=== PATIENT | female | born 1975 | race Two or more races ===

== ENCOUNTER 2023-08-02 07:58 | Inpatient (IN) | payer MEDICAID ==
[~2023-08-02] VITALS: Ht 157.5 cm; Wt 96.6 kg
[2023-08-02] VITALS (13 sets, daily range): BP systolic 123–166; BP diastolic 69–83; PULSE 75–90; RESP 14–21; TEMP 98–98.2; O2SAT 98–99
[2023-08-02 08:50] LABS: Alanine Aminotransferase 16 U/L (7-40); Albumin 4.3 g/dL (3.2-4.8); Alkaline Phosphatase 78 U/L (46-116); Anion Gap 7 (5-15); Aspartate Aminotransferase 17 U/L (13-40); BUN/Creatinine Ratio 31.5 (10.0-20.0); Bilirubin, Total 0.4 mg/dL (0.2-1.0); Blood Urea Nitrogen 23 mg/dL (9-23); Calcium 9.4 mg/dL (8.5-10.1); Carbon Dioxide 24 mmol/L (20-30); Chloride 108 mmol/L (98-107); Glucose 118 mg/dL (74-106); Potassium 4.1 mmol/L (3.5-5.1); Sodium 139 mmol/L (136-145); Total Protein 7.3 g/dL (5.7-8.2)
[2023-08-02 08:51] LABS: Urine Bacteria NONE SEEN /hpf (None Seen); Urine Blood 3+ /uL (Negative); Urine Clarity Clear (Clear); Urine Color Yellow (Yellow); Urine Hyaline Cast FEW /lpf (0 - 2); Urine Mucus FEW (None Seen); Urine Protein, UAD 1+ (Negative); Urine Specific Gravity 1.033 (1.001-1.035); Urine Urobilinogen Normal (Negative); Urine WBC 7 /hpf (0 - 5); Urine pH 5.5 (5.0-8.0)
[2023-08-02 08:56] LABS: Mean Corpuscular Hemoglobin 11.3 pg (28.0-32.0); Mean Corpuscular Hgb Conc. 23.9 g/dL (32.0-36.0)
[2023-08-02 08:58] LABS: Hematocrit 21.9 % (36.0-46.0); Mean Corpuscular Volume 47.3 fL (80.0-100.0); Red Blood Cells 4.63 10^6/uL (4.0-5.20); Red Cell Distribution Width 23.6 % (11.8-14.3); White Blood Cell 11.6 10^3/uL (4.4-10.8)
[2023-08-02 09:00] LABS: Hemoglobin 5.2 g/dL (12.2-16.2)
[2023-08-02 09:02] LABS: Band Neutrophils % (manual) 0; Basophils % (manual) 0 (0.0-2.0); Blast Cells 0; Eosinophils % (manual) 0 (0-7); Metamyelocytes % 0; Myelocytes % 0; Promyelocytes % 0; Reactive Lymphocytes 0
[2023-08-02 11:07] LABS: Lymphocytes % (manual) 9 (10.0-50.0); Monocytes % (manual) 4 (0-12); Platelet Estimate Adequate
[2023-08-02 11:08] LABS: Anisocytosis Slight; Hypochromia Marked; Ovalocytes MANY; Stomatocytes Moderate
[2023-08-02] MEDS ORDERED: DOCUSATE SOD 100 MG CAP PO PRN (12:30)
[2023-08-02] MEDS ORDERED: MORPHINE SULFATE INJ 2 MG/ml SYRG IV PRN (12:30)
[2023-08-02] MEDS ORDERED: ONDANSETRON HCL 4 MG/2 ML VIAL IV PRN (12:30)
[2023-08-02] MEDS: SODIUM CHLORIDE 0.9% 1,000 ML IV SCH ×2 (12:50→20:52)
[2023-08-02] MEDS: ACETAMINOPHEN 325 MG TAB PO PRN (17:10)
[2023-08-02 20:24] LABS: Ferritin 1.1 ng/mL (10-291); Folate (Folic Acid) 13.45 ng/mL (>5.38)
[2023-08-02 20:28] LABS: Hematocrit 29.3 % (36.0-46.0)
[2023-08-03] VITALS (7 sets, daily range): BP systolic 135–153; BP diastolic 68–85; PULSE 67–78; RESP 18; TEMP 97.8–98.5; O2SAT 97–99
[2023-08-03 05:56] LABS: Basophils # (auto) 0.2 10 ^3/uL (0-0.2); Eosinophils # (auto) 0.2 10 ^3/uL (0-0.8); Hemoglobin 7.6 g/dL (12.2-16.2); Lymphocytes # (auto) 2.7 10 ^3/uL (0.4-5.4); Lymphocytes % (auto) 28.4 % (10.0-50.0); Monocytes # (auto) 0.7 10 ^3/uL (0-1.3); Nucleated Red Blood Cells % 0.1 %; White Blood Cell 9.6 10^3/uL (4.4-10.8)
[2023-08-03 06:00] LABS: Alanine Aminotransferase 13 U/L (7-40); Albumin 4.1 g/dL (3.2-4.8); Alkaline Phosphatase 80 U/L (46-116); Anion Gap 8 (5-15); Aspartate Aminotransferase 13 U/L (13-40); BUN/Creatinine Ratio 14.9 (10.0-20.0); Bilirubin, Total 0.8 mg/dL (0.2-1.0); Blood Urea Nitrogen 10 mg/dL (9-23); Carbon Dioxide 21 mmol/L (20-30); Chloride 110 mmol/L (98-107); Glucose 99 mg/dL (74-106); Potassium 3.8 mmol/L (3.5-5.1); Sodium 139 mmol/L (136-145)
[2023-08-03 06:02] LABS: Basophils % (auto) 2.5 % (0.0-2.0); Eosinophils % (auto) 2.4 % (0.0-7.0); Hematocrit 28.1 % (36.0-46.0); Mean Corpuscular Hemoglobin 14.8 pg (28.0-32.0); Mean Corpuscular Hgb Conc. 27.1 g/dL (32.0-36.0); Mean Corpuscular Volume 54.8 fL (80.0-100.0); Monocytes % (auto) 7.3 % (0.0-12.0); Neutrophils # (auto) 5.7 10 ^3/uL (1.6-8.6); Neutrophils % (auto) 59.4 % (37.0-80.0); Red Blood Cells 5.13 10^6/uL (4.0-5.20)
[2023-08-03 06:05] LABS: Red Cell Distribution Width 35.1 % (11.8-14.3)
[2023-08-03] MEDS: SODIUM CHLORIDE 0.9% 1,000 ML IV SCH ×3 (06:41→21:50)
[2023-08-03 07:51] LABS: Platelet Estimate Adequate
[2023-08-03 07:55] LABS: Anisocytosis Marked; Hypochromia Marked
[2023-08-03] MEDS: ACETAMINOPHEN 325 MG TAB PO PRN (09:18)
[2023-08-03] MEDS ORDERED: IRON SUCROSE COMPLEX 200 MG in SODIUM CHL 0.9% 100 ML IV SCH (12:00)
[2023-08-03] MEDS: SODIUM FERR GLUC 125 MG in NS 100 ML IV SCH (14:22)
[2023-08-04] VITALS (7 sets, daily range): BP systolic 123–148; BP diastolic 77–91; PULSE 63–72; RESP 14–20; TEMP 97.9–98.2; O2SAT 98–99
[2023-08-04] MEDS: SODIUM CHLORIDE 0.9% 1,000 ML IV SCH ×2 (05:41→14:30)
[2023-08-04 05:50] LABS: Basophils # (auto) 0.2 10 ^3/uL (0-0.2); Basophils % (auto) 2.4 % (0.0-2.0); Eosinophils # (auto) 0.3 10 ^3/uL (0-0.8); Lymphocytes # (auto) 2.4 10 ^3/uL (0.4-5.4); Mean Corpuscular Volume 55.6 fL (80.0-100.0); Monocytes # (auto) 0.6 10 ^3/uL (0-1.3)
[2023-08-04 05:53] LABS: Eosinophils % (auto) 4.2 % (0.0-7.0); Hemoglobin 7.2 g/dL (12.2-16.2); Lymphocytes % (auto) 31.6 % (10.0-50.0); Mean Corpuscular Hemoglobin 15.4 pg (28.0-32.0); Mean Corpuscular Hgb Conc. 27.7 g/dL (32.0-36.0); Monocytes % (auto) 8.3 % (0.0-12.0); Neutrophils % (auto) 53.5 % (37.0-80.0); Nucleated Red Blood Cells % 0.1 %; Red Blood Cells 4.68 10^6/uL (4.0-5.20); White Blood Cell 7.5 10^3/uL (4.4-10.8)
[2023-08-04 06:34] LABS: Red Cell Distribution Width 35.5 % (11.8-14.3)
[2023-08-04 07:57] LABS: Platelet Estimate Adequate
[2023-08-04 07:58] LABS: Anisocytosis Marked; Hypochromia Marked
[2023-08-04 08:00] LABS: Stomatocytes Few
[2023-08-04 08:01] LABS: Ovalocytes MODERATE; Tear Drop Cells FEW
[2023-08-04] MEDS: ACETAMINOPHEN 325 MG TAB PO PRN (11:38)
[2023-08-04] MEDS: SODIUM FERR GLUC 125 MG in NS 100 ML IV SCH (12:53)
[2023-08-04] MEDS ORDERED: FERR-7 PO (17:09)
== END 2023-08-04 20:50 | disposition home or self-care (01) | DRG 532 ==
LOC: ER 07:58 → OVERFLOW 12:25 → EAST 22:28
PROVIDERS: ADMIT Nurse Practitioner Family; ATTEND Nurse Practitioner Acute Care
PROC: 30233N1 Transfusion of Nonautologous Red Blood Cells into Peripheral Vein, Percutaneous Approach (ICD-10-PCS; principal; 2023-08-02)
DX: D25.9 Leiomyoma of uterus, unspecified (principal); D62 Acute posthemorrhagic anemia; N93.8 Other specified abnormal uterine and vaginal bleeding; E66.9 Obesity, unspecified; N92.1 Excessive and frequent menstruation with irregular cycle; Z83.3 Family history of diabetes mellitus; Z82.49 Family history of ischemic heart disease and other diseases of the circulatory system; Z80.3 Family history of malignant neoplasm of breast; Z83.42 Family history of familial hypercholesterolemia; Z68.39 Body mass index [BMI] 39.0-39.9, adult
CPT/HCPCS: 36415; 70450; 76830; 76856; 80053; 81001; 82270; 82607; 82728; 82746; 83540; 83550; 83615; 84484; 84702; 85007; 85014; 85018; 85025; 85027; 85045; 86850; 86900; 86901; 86920; 93005; G0378; J1756; J2405

== ENCOUNTER 2025-08-06 15:58 | Emergency (ER) | payer MEDICAID ==
[~2025-08-06] VITALS: Ht 157.5 cm; Wt 97.0 kg
[~2025-08-06 15:58] MED LIST: FERR-7 PO; LACT10SO3 PO; NITR-87 PO; ZOFR4T PO
--- NOTE | 2025-08-06 19:23 | ED.PDOC ---
History of Present Illness(SKN HPI Comments 50 y/o F, presents to the ED for CC of abscess. Patient states, she has had an abscess to her left breast that has been present [id number] which became inflamed [id number] ago and popped last night (08/05/25). Patient has notable redness to her left breast, with an abscess draining purulent drainage. Patient denies fever, chills, or excessive diaphoresis. No other symptoms or modifying factors are present at this time. Chief Complaint: Abscess Time Seen by MD: 19:00 Primary Care Provider: China Lo History of Present Illness: Nurses Notes, Medications, Allergies Allergies: Coded Allergies: NO KNOWN ALLERGIES (Unverified , 08/02/23) Home Meds Active Scripts Lactulose (Lactulose) 10 Gm/15 Ml Jaqueline, 10 GM PO Q8HP PRN, #150 ML Prov:AYDE LOMBARDI PAC 12/31/23 Ondansetron Odt 4MG Tab (ZOFRAN PO) 4 Mg Tb, 4 MG PO Q6HP PRN, #15 TAB ODT TAB-DISSOLVE IN MOUTH, THEN SWALLOW Prov:AYDE LOMBARDI PAC 12/31/23 Nitrofurantoin Monohydrate Mac (Macrobid) 100 Mg Cap, 100 MG PO BID PRN for 7 Days, #14 CAP Prov:AYDE LOMBARDI PAC 12/31/23 Ferrous Sulfate (Iron) 325 Mg Tab, 325 MG PO DAILY for 60 Days, #60 TAB Prov:CIRO DAVIS NP 08/04/23 Information Source: Patient Mode of Arrival: Ambulatory Severity: Moderate Timing: Hours Duration: Since onset Prehospital treatment: None Location: Other (left breast) Mechanism: Spontaneous Onset Wound Type: None Immunization Status of Animal: NA History of: None Associated Signs and Symptoms: Redness, Swelling Past Medical History PAST MEDICAL HISTORY: Denies Surgical History: HEAD OF MUSIC History: Denies all HEAD OF MUSIC Hx Family History Family History: Unknown Social History Smoker: Non-Smoker Alcohol: Denies ETOH Use Drugs: Denies Drug Use Lives In: Home Constitutional: denies: chills, diaphoresis, fatigue, fever, malaise, sweats, weakness, others EENTM: denies: blurred vision, double vision, ear bleeding, ear discharge, ear drainage, ear pain, ear ringing, eye pain, eye redness, hearing loss, mouth pain, mouth swelling, nasal discharge, nose bleeding, nose congestion, nose pain, photophobia, tearing, throat pain, throat swelling, voice changes, others Respiratory: denies: cough, hemoptysis, orthopnea, SOB at rest, shortness of breath, SOB with excertion, stridor, wheezing, others Cardiovascular: denies: chest pain, dizzy spells, diaphoresis, Dyspnea on exertion, edema, irregular heart beat, left arm pain, lightheadedness, palpitations, PND, syncope, others Gastrointestinal: denies: abdomen distended, abdominal pain, blood streaked bowels, constipated, diarrhea, dysphagia, difficulty swallowing, hematemesis, melena, nausea, poor appetite, poor fluid intake, rectal bleeding, rectal pain, vomiting, others Genitourinary: denies: abnormal vagina bleeding, burning, dyspareunia, dysuria, flank pain, frequency, hematuria, incontinence, pain, , vagina discha rge, urgency, others Neurological: denies: dizziness, fainting, headache, left sided numbness, left sided weakness, numbness, paresthesia, pre-existing deficit, right sided numbness, right sided weakness, seizure, speech problems, tingling, tremors, weakness, others Musculoskeletal: denies: back pain, gout, joint pain, joint swelling, muscle pain, muscle stiffness, neck pain, others Integumetry: reports: others (abscess to left breast); denies: bruises, change in color, change in hair/nails, dryness, laceration, lesions, lumps, rash, wounds Allergic/Immunocompromised: denies: Difficulty Healing, Frequent Infections, Hives, Itching, others Hematologic/Lymphatic: denies: anemia, blood clots, easy bleeding, easy bruising, swollen glands, others Endocrine: denies: excessive hunger, excessive sweating, excessive thirst, excessive urination, flushing, intolerance to cold, intolerance to heat, unexplained weight gain, unexplained weight loss, others Psychiatric: denies: anxiety, bipolar disorder, depression, hopeless, panic disorder, schizophrenia, sleepless, suicidal, others All Other Systems: Reviewed and Negative Physical Exam General Appearance: No Apparent Distress, Normal HEENT: Normal ENT Inspection, Pharynx Normal Neck: Full Range of Motion, Non-Tender, Normal, Normal Inspection Respiratory: Chest Non-Tender, Lungs Clear, No Accessory Muscle Use, No Respiratory Distress, Normal Breath Sounds Cardiovascular: No Edema, No Murmur, No Gallop, Normal Peripheral Pulses, Regular Rate/Rhythm Breast Exam: Deferred Gastrointestinal: No Organomegaly, Non Tender, No Pulsatile Mass, Normal Bowel Sounds, Soft Genitalia: Deferred Pelvic: Deferred Rectal: Deferred Extremities: No calf tenderness, Normal capillary refill, Normal inspection, Normal range of motion, Non-tender, No pedal edema Musculoskeletal : Apperance: Normal Neurologic: Alert, telecom manager II-XII nml as Tested, No Motor Deficits, Normal Affect, Normal Mood, No Sensory Deficits Cerebellar Function: Normal Reflexes: Normal Skin: Dry, Normal Color, Warm, Other (erythema to the left lateral breast, open abscess to the left lateral side x2cm round, white purluent drainage) Lymphatic: No Adenopathy Was a procedure done? Was a procedure done?: No Differential Diagnosis (INTG) Differential Diagnosis: Abscess, Cellulitis X-Ray, Labs, Meds, VS Vital Signs Date Time Temp Pulse Resp B/P (MAP) Pulse Ox O2 Delivery O2 Flow Rate FiO2 08/06/25 16:07 98.4 76 18 156/93 99 98.4 X-Ray, Labs, Meds, VS Comment Continue with warm compress, follow up with PCP for possible dermatology referral, finish all antibiotics as prescribed. Time of 1ST Reevaluation: 19:30 Reevaluation 1ST: Unchanged Patient Education/Counseling: Diagnosis, Treatment, Need For Follow Up (Follow up with PCP next available appointment. Return emergency department if symptoms) Family Education/Counseling: No Family Present SEPSIS Sepsis Screen Date sepsis recognized/suspect: Aug 06, 2025 Time Sepsis recognized/suspect: 1609 Recent Procedure: No On Antibiotic Therapy: No Respiratory Rate >20: No Heart Rate >90: No Temp<36 C (96.8 F) or >38.3 C: No SBP <90 or MAP <65 mmHG: No New Acute Mental Status Change: No Is the patient on CPAP, BIPAP,: No Vital Signs Date Time Temp Pulse Resp B/P (MAP) Pulse Ox O2 Delivery O2 Flow Rate FiO2 08/06/25 16:07 98.4 76 18 156/93 99 98.4 Departure 1 Departure Time of Disposition: 19:41 Impression: Primary Impression: Abscess Disposition: 01 HOME / SELF CARE / HOMELESS Condition: Stable e-Prescriptions Ibuprofen Micronized (Ibuprofen) 800 Mg Tab 800 MG PO TID PRN, #40 TAB Prov: PRISCILLA NEWTON 08/06/25 Clindamycin Hcl (Clindamycin Hcl) 300 Mg Cap 1 CAP PO TID for 10 Days, #30 CAP Prov: PRISCILLA NEWTON 08/06/25 Discharged With: Self Critical Care Note Critical Care Time?: No Stability Stability form required: No Heart Score Heart Score: Heart Score Response (Comments) Value History N/A 0 EKG N/A 0 Age N/A 0 Risk Factors N/A 0 Troponin N/A 0 Total 0 I personally scribed for PRISCILLA NEWTON ([email or web address]) on 08/06/25 at 19:23. Electronically submitted by Debo Balderas ([email or web address]). PRISCILLA NEWTON Aug 06, 2025 19:23
[2025-08-06] MEDS ORDERED: CLIN1CAP70 PO (19:43)
[2025-08-06] MEDS ORDERED: IBUP-1455 PO (19:43)
[2025-08-06 19:50] VITALS: BP 148/86; PULSE 72; RESP 16; TEMP 98.1; O2SAT 98
== END 2025-08-06 19:59 | disposition home or self-care (01) ==
LOC: ER 15:58
DX: N61.1 Abscess of the breast and nipple (principal); Z79.899 Other long term (current) drug therapy